=== PATIENT | male | born 1965 | race Caucasian/White ===

== ENCOUNTER 2019-01-20 21:05 | Emergency (ER) | payer MEDICAID ==
[~2019-01-20] VITALS: Ht 170.2 cm; Wt 97.5 kg
[2019-01-20 21:10] VITALS: BP_SYST 135
[2019-01-20 23:29] VITALS: BP_SYST 129
== END 2019-01-20 23:29 | disposition home or self-care (01) ==
LOC: SED 21:05
DX: L02.414 Cutaneous abscess of left upper limb (principal); L03.114 Cellulitis of left upper limb; R03.0 Elevated blood-pressure reading, without diagnosis of hypertension
CPT/HCPCS: 99283